=== PATIENT | female | born 1945 | race Native Hawaiian/Other Pacific Islander ===

== ENCOUNTER 2022-12-31 13:26 | Emergency (ER) | payer BC ==
[~2022-12-31] VITALS: Ht 167.6 cm; Wt 47.2 kg
[2022-12-31 13:30] VITALS: BP 98/58; TEMP 97.4
[2022-12-31 14:24] LABS: PLATELET COUNT 221 K/uL (152-353)
[2022-12-31 14:33] LABS: POTASSIUM 3.6 mmol/L (3.6-5.2)
[2022-12-31] MEDS ORDERED: AMLODIPINE BESYLATE PO (20:44)
[2022-12-31] MEDS ORDERED: CALCIUM MAGN PO (20:45)
[2022-12-31] MEDS ORDERED: COQ10100 MG PO (20:46)
[2022-12-31] MEDS ORDERED: ECONAZOLE NITRATE 1% EX (20:46)
[2022-12-31] MEDS ORDERED: PROCTO-MED HC2.5 % EX (20:47)
[2022-12-31] MEDS ORDERED: EUTHYROX50 MCG PO (20:48)
[2022-12-31] MEDS ORDERED: LORA0.5T17 PO (20:49)
[2022-12-31] MEDS ORDERED: MOBIC7.5 M1 PO (20:50)
[2022-12-31] MEDS ORDERED: HYZAAR1 TA1 PO (20:50)
[2022-12-31] MEDS ORDERED: METFTAB PO (20:51)
[2022-12-31] MEDS ORDERED: MULTIVITAMI1 PO (20:52)
[2022-12-31] MEDS ORDERED: OMEP20CA PO (20:52)
[2022-12-31] MEDS ORDERED: ZOLOFT25 MG PO (20:53)
[2022-12-31] MEDS ORDERED: SIMV20TA2 PO (20:54)
[2022-12-31] MEDS ORDERED: TOLT2CAP PO (20:54)
[2022-12-31] MEDS ORDERED: GALANTAMINE PO (20:58)
== END 2022-12-31 19:20 | disposition home or self-care (01) ==
LOC: ED 13:26
PROVIDERS: Family Medicine
DX: N39.0 Urinary tract infection, site not specified (principal); F03.90 Unspecified dementia, unspecified severity, without behavioral disturbance, psychotic disturbance, mood disturbance, and anxiety; Z02.79 Encounter for issue of other medical certificate
CPT/HCPCS: 80053; 81000; 83605; 85027; 87040; 87086; 87088; 87635; 93005; 96365; 96366; 96375; 99284; J0696; J2060; U0003

== ENCOUNTER → 2023-01-01 | Emergency (ER) | payer BC ==
[~2023-01-01] MED LIST: AMLODIPINE BESYLATE PO; CALCIUM MAGN PO; COQ10100 MG PO; ECONAZOLE NITRATE 1% EX; EUTHYROX50 MCG PO; GALANTAMINE PO; HYZAAR1 TA1 PO; LEVO0.0529 PO; LORA0.5T17 PO; LOSA50TA PO; MELOXICAM7.5 MG PO; METF500T PO; METFTAB PO; MOBIC7.5 M1 PO; MULTIVITAMI1 PO; MULTTAB52 PO; NORVASC 5MG TAB PO; OLAN2.5T2 PO; OLANZAPINE5 MG PO; OMEP20CA PO; OXYB5TAB56 PO; PANTOPRAZOLE 40MG TA PO; PROCTO-MED HC2.5 % EX; RIVA1.5C PO; SIMV20TA2 PO; TOLT2CAP PO; ZOLOFT25 MG PO
== END ==
LOC: ED 11:44
DX: Z53.21 Procedure and treatment not carried out due to patient leaving prior to being seen by health care provider (principal)